=== PATIENT | female | born 1980 | race Caucasian/White ===

== ENCOUNTER 2020-09-27 17:16 | Emergency (ER) ==
[~2020-09-27] VITALS: Ht 177.8 cm; Wt 84.1 kg
[~2020-09-27 17:16] MED LIST: LIDOcaine 1% W/epiNEPHrine 1:100,000 20ml vial ONE
[2020-09-27] MEDS ORDERED: morphine 10mg/ml inj. IM ONE (17:45)
[2020-09-27] MEDS ORDERED: ondansetron 4mg rapidly disintigrating tab PO ONE (17:45)
--- NOTE | 2020-09-27 18:20 | NUR ---
MD and YOKE SETTER at bedside to do brachial index
--- NOTE | 2020-09-27 18:45 | NUR ---
CAROLINA ROCKWELL REPORTS PT JUST NUMMBED. LAC TRAY NOW AT BEDSIDE. PT TO BE IRRIGATED WITH 1,000 CC'S, THEN SURUTED. ANTICIPATE DISCHARGE ONCE ORDERS COMPLETED.
[2020-09-27 18:47] VITALS: BP 100/80
[2020-09-28] MEDS ORDERED: IBUP-1984 PO (12:45)
== END 2020-09-27 19:31 | disposition home or self-care (01) ==
LOC: ER 17:17
DX: S81.812A Laceration without foreign body, left lower leg, initial encounter (principal); S71.112A Laceration without foreign body, left thigh, initial encounter; W26.0XXA Contact with knife, initial encounter; Y93.E3 Activity, vacuuming; Y92.89 Other specified places as the place of occurrence of the external cause; Y99.8 Other external cause status
CPT/HCPCS: 12001; 73552; 96372; 99283; J2270

== ENCOUNTER 2020-09-28 10:06 | Emergency (ER) | payer SELFPAY ==
[~2020-09-28] VITALS: Ht 177.8 cm; Wt 84.1 kg
[2020-09-28] MEDS ORDERED: normal saline 1000ML IV soln IVB ONE (10:30)
[2020-09-28 10:58] LABS: BASOPHILS % (AUTO) 0.5 % (0-1); EOSINOPHILS # (AUTO) 0.1 X10'3 (0-0.9); EOSINOPHILS % (AUTO) 2.2 % (0-6); HEMATOCRIT 37.1 % (35.0-45.0); HEMOGLOBIN 12.7 g/dl (12.0-16.0); LYMPHOCYTES # (AUTO) 1.4 X10'3 (1.1-4.8); LYMPHOCYTES % (AUTO) 27.7 % (21-51); MEAN CORPUSCULAR HEMOGLOBIN 31.2 PG (27.0-31.0); MEAN CORPUSCULAR HGB CONC 34.2 g/dL (33.0-36.5); MEAN CORPUSCULAR VOLUME 91.2 FL (78-98); MEAN PLATELET VOLUME 8.8 FL (7.4-10.4); MONOCYTES # (AUTO) 0.5 X10'3 (0-0.9); MONOCYTES % (AUTO) 9.7 % (2-12); NEUTROPHILS % (AUTO) 59.9 % (42-75); PLATELET COUNT 208 X10'3 (140-440); RED BLOOD COUNT 4.06 X10'6 (4.20-5.60)
[2020-09-28 11:19] LABS: ALANINE AMINOTRANSFERASE 20 U/L (12-78); ALBUMIN 4.1 G/DL (3.4-5.0); ALBUMIN/GLOBULIN RATIO 1.4 (1.1-1.5); ALKALINE PHOSPHATASE 42 IU/L (46-116); ANION GAP 7 (8-16); ASPARTATE AMINO TRANSFERASE 13 U/L (10-37); BILIRUBIN,TOTAL 1.9 MG/DL (0.1-1.0); BLOOD UREA NITROGEN 12 MG/DL (7-18); BUN/CREATININE RATIO 17.9 (6.6-38.0); CALCIUM 8.6 MG/DL (8.5-10.1); CHLORIDE 106 MMOL/L (99-107); CREATININE 0.67 MG/DL (0.40-0.90); GLUCOSE 67 MG/DL (70-104); POTASSIUM 4.1 MMOL/L (3.5-5.1); SODIUM 141 MMOL/L (135-145); TOTAL CARBON DIOXIDE 27.9 MMOL/L (24-32); eGFR > 90 ML/MIN
[2020-09-28] MEDS ORDERED: iohexol 350MG/ML 100ml bottle IV ONE (11:25)
[2020-09-28] MEDS ORDERED: IBUP-1984 PO (12:45)
[2020-09-28 13:00] VITALS: BP 113/64
== END 2020-09-28 13:01 | disposition home or self-care (01) ==
LOC: ER 10:08
DX: S70.12XD Contusion of left thigh, subsequent encounter (principal); W26.0XXD Contact with knife, subsequent encounter
CPT/HCPCS: 36415; 75635; 80053; 85025; 96360; 99285; J7030; Q9967

== ENCOUNTER 2021-02-08 12:43 | Emergency (ER) | payer BC, OTHER ==
[~2021-02-08] VITALS: Ht 177.8 cm; Wt 84.0 kg
[2021-02-08 12:46] VITALS: BP 131/83
--- NOTE | 2021-02-08 14:55 | NUR ---
OFFICER YISEL ARZATE #[id number], DROPPED OFF PAPERWORK FOR PT.
[2021-02-08] MEDS ORDERED: ibuprofen 200mg tablet PO ONE (15:05)
== END 2021-02-08 15:47 | disposition home or self-care (01) ==
LOC: ER 12:44
DX: S80.02XA Contusion of left knee, initial encounter (principal); S20.411A Abrasion of right back wall of thorax, initial encounter; S20.311A Abrasion of right front wall of thorax, initial encounter; S40.211A Abrasion of right shoulder, initial encounter; Y04.8XXA Assault by other bodily force, initial encounter; Y93.89 Activity, other specified; Y92.89 Other specified places as the place of occurrence of the external cause; Y99.8 Other external cause status
CPT/HCPCS: 73110; 99283

== ENCOUNTER 2024-10-15 12:04 | Emergency (ER) | payer BC, OTHER ==
[~2024-10-15] VITALS: Ht 177.8 cm; Wt 75.5 kg
[2024-10-15 12:12] VITALS: BP 103/73; PULSE 94; O2SAT 99
[2024-10-15 12:32] VITALS: RESP 16
[2024-10-15 12:55] LABS: BASOPHILS % (AUTO) 0.7 % (0-1); EOSINOPHILS # (AUTO) 0.1 X10'3 (0-0.9); EOSINOPHILS % (AUTO) 2.7 % (0-6); HEMATOCRIT 41.4 % (35.0-45.0); HEMOGLOBIN 14.1 g/dl (12.0-16.0); LYMPHOCYTES % (AUTO) 41.7 % (21-51); MEAN CORPUSCULAR HEMOGLOBIN 30.8 PG (27.0-31.0); MEAN CORPUSCULAR VOLUME 90.6 FL (78-98); MEAN PLATELET VOLUME 8.2 FL (7.4-10.4); MONOCYTES # (AUTO) 0.5 X10'3 (0-0.9); MONOCYTES % (AUTO) 22.6 % (2-12); NEUTROPHILS # (AUTO) 0.8 X10'3 (1.8-7.7); NEUTROPHILS % (AUTO) 32.3 % (42-75); PLATELET COUNT 217 X10'3 (140-440); RED BLOOD COUNT 4.57 X10'6 (4.20-5.60); RED CELL DISTRIBUTION WIDTH 13.2 % (11.5-14.5); WHITE BLOOD COUNT 2.4 X10'3 (4.5-11.0)
[2024-10-15 13:12] LABS: ALANINE AMINOTRANSFERASE 17 U/L (12-78); ALBUMIN/GLOBULIN RATIO 1.1 (1.1-1.5); ALKALINE PHOSPHATASE 57 IU/L (46-116); ANION GAP 7 (8-16); ASPARTATE AMINO TRANSFERASE 15 U/L (10-37); BILIRUBIN,TOTAL 0.7 MG/DL (0.1-1.0); BLOOD UREA NITROGEN 5 MG/DL (7-18); BUN/CREATININE RATIO 8.1 (10.0-20.0); CHLORIDE 103 MMOL/L (99-107); CREATININE 0.62 MG/DL (0.40-0.90); GLUCOSE 79 MG/DL (70-104); POTASSIUM 3.6 MMOL/L (3.5-5.1); SODIUM 139 MMOL/L (135-145); TOTAL CARBON DIOXIDE 28.8 MMOL/L (24-32); TOTAL PROTEIN 7.7 G/DL (6.4-8.2); eCRCL 129 ML/MIN; eGFR > 90 ML/MIN
[2024-10-15 13:19] LABS: PRO BRAIN NATRIURETIC PEPTIDE 39 PG/ML (0-125)
[2024-10-15 14:09] LABS: PLATELET ESTIMATE NORMAL; TOTAL CELLS COUNTED 100
[2024-10-15] MEDS ORDERED: ALBU18HF2 IH (14:19)
[2024-10-15 14:40] VITALS: TEMP 98.6
== END 2024-10-15 14:41 | disposition home or self-care (01) ==
LOC: ER 12:05
DX: J22 Unspecified acute lower respiratory infection (principal); J18.9 Pneumonia, unspecified organism; Z79.899 Other long term (current) drug therapy
CPT/HCPCS: 71046; 80053; 83605; 83880; 85007; 85025; 87040; 99284